=== PATIENT | male | born 1950 | race African-American/Black ===

== ENCOUNTER 2016-05-28 10:11 | Outpatient (CLI) | payer OTHER ==
[2016-05-28 11:03] LABS: POTASSIUM 5.3 mmol/L (3.6-5.2); SODIUM 133 mmol/L (136-145)
[2016-05-28 11:09] LABS: PLATELET COUNT 211 K/uL (142-355)
== END 2016-05-28 19:40 | disposition home or self-care (01) ==
LOC: LAB 10:11
PROVIDERS: Family Medicine
DX: E11.9 Type 2 diabetes mellitus without complications (principal); I10 Essential (primary) hypertension; E78.4 Other hyperlipidemia; N40.0 Benign prostatic hyperplasia without lower urinary tract symptoms; E55.9 Vitamin D deficiency, unspecified
CPT/HCPCS: 80053; 80061; 81000; 82043; 82306; 82570; 83036; 83735; 84153; 84439; 84443; 85027

== ENCOUNTER 2016-07-23 14:45 | Outpatient (CLI) | payer OTHER | END 2016-07-23 19:10 | disposition home or self-care (01) | LOC: LABW 14:45 | DX: R97.20 Elevated prostate specific antigen [PSA] (principal); N40.0 Benign prostatic hyperplasia without lower urinary tract symptoms; N41.0 Acute prostatitis | CPT/HCPCS: 36415; 84154 ==